=== PATIENT | male | born 1960 | race Caucasian/White ===

== ENCOUNTER 2016-06-24 14:29 | Inpatient (IN) | payer BC ==
[~2016-06-24] VITALS: Ht 172.7 cm; Wt 81.2 kg
[2016-06-24 15:03] LABS: MEAN CORPUSCULAR HEMOGLOBIN 30.8 PG (26.0-34.0); MEAN CORPUSCULAR HGB CONC 33.1 g/dL (31.0-37.0); MEAN CORPUSCULAR VOLUME 93 FL (80-100); MEAN PLATELET VOLUME 10.8 FL (6.0-9.5); PLATELET COUNT 235 10^3uL (150-450); WHITE BLOOD COUNT 19.31 10^3uL (4.0-11.0)
[2016-06-24 15:11] LABS: ALBUMIN 3.6 g/dL (3.4-5.0); ANION GAP 15.2 MEQ/L (3-15); BAND NEUTROPHILS % 4 % (0-6); CALCULATED IONIZED CALCIUM 4.2 mg/dL (3.8-4.6); EOSINOPHILS % 0 % (0-4); LYMPHOCYTES # 0.4 #; MONOCYTES # 1.3 #; MONOCYTES % 7 % (3-11); RBC MORPH NORMAL (NORMAL); SEGMENTED NEUTROPHILS % 87 % (51-67); TOTAL CELLS COUNTED 100; TOTAL PROTEIN 6.8 g/dL (6.4-8.5)
[2016-06-24 16:35] LABS: BILIRUBIN,URINE Negative (Negative); CLARITY,URINE Clear; COLOR,URINE Yellow; GLUCOSE, URINE (UA) Negative (Negative); LEUKOCYTE ESTERASE ,URINE 1+ (Negative)
[2016-06-24 16:51] LABS: URINE CENTRIFUGED VOLUME 12 mL
[2016-06-24] MEDS ORDERED: ACETAMINOPHEN 500 MG TAB (TYLENOL) PO ONE (17:30)
--- NOTE | 2016-06-24 18:50 | NUR ---
Report received, care assumed.
[2016-06-24] MEDS ORDERED: cefTRIAXone SODIUM 1,000 MG in SODIUM CHLORIDE 50 ML IV ONE (19:00)
--- NOTE | 2016-06-24 19:13 | NUR ---
O2 sats 86%, placed O2 on at 2L. Sats now 92%.
--- NOTE | 2016-06-24 21:12 | NUR ---
Report given to DEVIKA Ann. Preparing pt for transfer to ICU.
--- NOTE | 2016-06-24 21:38 | NUR ---
Pt transferred to ICU, Rm 342
--- NOTE | 2016-06-24 21:40 | NUR ---
Blood cultures not obtained prior to admission.
--- NOTE | 2016-06-24 21:47 | NUR ---
patient arrives via cart accompanied by Alexandrea FORTUNE admitted to ICU 342
--- NOTE | 2016-06-24 22:00 | NUR ---
Patient with large light brown loose liquid stool upon entering room, c/o shivering.
[2016-06-24 22:06] VITALS: BP 102/53
--- NOTE | 2016-06-24 22:30 | NUR ---
Third bag of NS from running from ED upon transfer per verbal order changed to 75 ml/hr
--- NOTE | 2016-06-24 22:47 | NUR ---
Tele Dr completed by Hilary Hinton RN and Rhoda FORTUNE, patient with $32 douglas in bag, in closet, offered lock up for money gold wedding band. No other valuables with patient. has iphone at bedside.
--- NOTE | 2016-06-24 23:00 | NUR ---
Nares swabbed for Influenza A&B, sent to lab.
[2016-06-24 23:36] LABS: INFLUENZA VIRUS TYPE A ANTIBOD Negative (NEGATIVE); INFLUENZA VIRUS TYPE B ANTIBOD Negative (NEGATIVE)
[2016-06-24] MEDS ORDERED: ALBUTEROL 0.083% NEB SOLUTION 2.5 MG/3 ML VIAL INH PRN (23:50)
[2016-06-24] MEDS ORDERED: DEXTROSE 50% 25 GM/50 ML SYRINGE IV PRN (23:50)
[2016-06-24] MEDS ORDERED: DEXTROSE ORAL GEL (GLUTOSE 40%) 15 GM TUBE PO PRN (23:50)
[2016-06-24] MEDS ORDERED: PROMETHAZINE HCL INJ 12.5 MG in SODIUM CHLORIDE 25 ML IV PRN (23:50)
[2016-06-24] MEDS ORDERED: GLUCAGON EMERGENCY 1 MG/KIT IM PRN (23:50)
[2016-06-24] MEDS ORDERED: ACETAMINOPHEN 325 MG TAB (TYLENOL) PO PRN (23:50)
[2016-06-25] VITALS (18 sets, daily range): BP systolic 78–129; BP diastolic 41–79
[2016-06-25] MEDS: ONDANSETRON 2 MG/ML (Z0FRAN) 2 ML VIAL IV PRN ×3 (01:00→21:01)
[2016-06-25] MEDS ORDERED: SODIUM CHLORIDE FLUSH 10 ML ONE (01:12)
--- NOTE | 2016-06-25 01:45 | NUR ---
While placing second IV, patient stated he did not want "Ritalin" "please do not pump Ritalin into me", "that is why I dumped it down the drain". Patient was clutching empty bottle of Ritalin upon arriving to the unit. Stated it was in his coat pocket and he dumped it down the drain at home. States it makes him jittery and nervous and its fine when he's up moving but laying in the hospital bed he does not want it. Advised patient I would pass on in report and let hospitalist know.
[2016-06-25] MEDS ORDERED: ACETAMINOPHEN 500 MG TAB (TYLENOL) PO PRN (02:10)
--- NOTE | 2016-06-25 02:18 | NUR ---
Patient sats 87% with rest, O2 @ 2L/nc applied.
--- NOTE | 2016-06-25 02:34 | NUR ---
Dr. Avila consulted for Tylenol order @ 0100 with past medical history of patient. Advised to give 500 mg of Tylenol q 6 hr prn. 1 1/2 tabs given per current order in computer.
[2016-06-25] MEDS ORDERED: HEPARIN 5000 UNIT/0.5 ML SYRINGE SC SCH (06:00)
[2016-06-25 06:14] LABS: MEAN CORPUSCULAR HEMOGLOBIN 30.6 PG (26.0-34.0); MEAN CORPUSCULAR HGB CONC 32.5 g/dL (31.0-37.0); MEAN CORPUSCULAR VOLUME 94 FL (80-100); MEAN PLATELET VOLUME 9.7 FL (6.0-9.5); PLATELET COUNT 172 10^3uL (150-450); WHITE BLOOD COUNT 18.78 10^3uL (4.0-11.0)
[2016-06-25 06:37] LABS: ALBUMIN 2.9 g/dL (3.4-5.0); ANION GAP 13.6 MEQ/L (3-15); CALCULATED IONIZED CALCIUM 3.7 mg/dL (3.8-4.6); TOTAL PROTEIN 5.9 g/dL (6.4-8.5)
--- NOTE | 2016-06-25 06:49 | NUR ---
Orders came up to to acknowledge stat, lab cancellations and reordered. Lab called, notified original orders placed under EMS. Elevated troponin at 0105 Dr. RESENDIZ as soon as seen. Stat order for EKG - nurse put order in and called RT in room now doing EKG
--- NOTE | 2016-06-25 07:10 | NUR ---
Report received from Maira FORTUNE and care assumed. Pt resting in bed with eyes closed, oxygen put on at 1.5 L/NC due to O2 sats in the 80's.
[2016-06-25 07:16] LABS: BAND NEUTROPHILS % 11 % (0-6); EOSINOPHILS % 0 % (0-4); LYMPHOCYTES # 0.6 #; MONOCYTES # 0.7 #; MONOCYTES % 4 % (3-11); RBC MORPH NORMAL (NORMAL); SEGMENTED NEUTROPHILS % 82 % (51-67); TOTAL CELLS COUNTED 100
--- NOTE | 2016-06-25 07:40 | NUR ---
Assessments completed, lungs sounds clr, BS hyperactive, radial pulses palpable and strong, braiding operator equal but weak. Dorsal pulses palpable and strong. Pt denies needs at present. Pt is confused at times. Pt is cooperative. IV sites in RFA and RH are patent without redness or edema.
[2016-06-25] MEDS ORDERED: NS FLUSH 3 ML PRN IV (08:00)
[2016-06-25] MEDS: INSULIN LISPRO 1 UNIT/0.01 ML (HUMALOG) DOSE SC SCH ×6 (08:32→21:00)
[2016-06-25] MEDS ORDERED: cefTRIAXone SODIUM 2 GM in SODIUM CHLORIDE 50 ML IV SCH (09:00)
[2016-06-25] MEDS ORDERED: MAGNESIUM 1 GM/100 ML IVPB 100 ML IV ONE (09:00)
[2016-06-25] MEDS: NS FLUSH 3 ML DAILY IV SCH (09:00)
--- NOTE | 2016-06-25 09:05 | NUR ---
Dr Amaya informed of the run of VF and new orders obtained. Physician into to talk with pt. Pt is confused on some questions and talks randomly. Pt had been up to the toilet and had a large liquid louis stool.
--- NOTE | 2016-06-25 09:15 | NUR ---
1st bag of magnesium IV started and infusing per pump at 100cc/hr. Pt is now resting with eyes closed resp even and unlabored.
[2016-06-25] MEDS ORDERED: ACETAMINOPHEN 325 MG TAB (TYLENOL) PO PRN (09:30)
[2016-06-25] MEDS ORDERED: traZODone 50 MG (DESYREL) TABLET PO PRN (09:50)
[2016-06-25] MEDS: MAGNESIUM 1 GM/100 ML IVPB 100 ML IV SCH ×2 (10:15→10:48)
[2016-06-25] MEDS: ASPIRIN 81 MG CHEW (CHILDREN'S ASA) PO SCH (12:07)
[2016-06-25] MEDS: CEFEPIME 2,000 MG in SODIUM CHLORIDE 100 ML IV SCH ×2 (12:07→23:01)
[2016-06-25] MEDS: DIGOXIN 0.25 MG (LANOXIN) TAB PO SCH (12:07)
--- NOTE | 2016-06-25 12:30 | NUR ---
Pt refused to eat his lunch.
--- NOTE | 2016-06-25 14:05 | NUR ---
Temp is elevated, Tylenol 325 mg tabs x 2 given. Pt resting in bed.
--- NOTE | 2016-06-25 14:20 | NUR ---
Pt having dry heaves, states he is nauseated. Zofran 4 mg IV given as ordered.
[2016-06-25] MEDS ORDERED: NOREPINEPHRINE 4 MG in D5W (IVPB) 250 ML IV PRN (15:15)
--- NOTE | 2016-06-25 15:15 | NUR ---
BP down to 78/54, new order received from Dr. Amaya to start a NS bolus at 500cc/hr for 2 hours. Bolus started. Pt states he is burning up, but temp at this time is 98.2. Pt is diaphoretic.
--- NOTE | 2016-06-25 15:40 | NUR ---
MED REC COMPLETE--current list obtained from external med history application, patient report, and retail pharmacy ([facility]).
--- NOTE | 2016-06-25 16:30 | NUR ---
Called to pt room, requested to have temp taken. Temp per temporal is 97.6. Bolus continues.
--- NOTE | 2016-06-25 17:00 | NUR ---
Pt resting quietly, resp even and unlabored, on RA. BP 122/74, P 96, R 21, and sat 96%.
--- NOTE | 2016-06-25 17:20 | NUR ---
Pt requested tomato soup and milk for supper. Ate his soup and drank two cartons of milk. Dr Amaya present and new orders received to dc the fluids at this time. Pt appears more alert this evening. Monitor remains on and temp remains afebrile at present.
--- NOTE | 2016-06-25 20:30 | NUR ---
Patient lying in bed resting off and on, strong odor in room, patient with dried bm in brief, assisted to toilet, bottom washed with soap and water, refused shower in day and at this time. Encouraged to have shower in the morning, refuses offer of oral care including sponge swabs.
[2016-06-25] MEDS ORDERED: INSULIN GLARGINE 1 UNIT/0.01ML (LANTUS) DOSE SC SCH (21:00)
--- NOTE | 2016-06-25 21:00 | NUR ---
Complaining of nausea with dry heaves, states "I don't feel good". Zofran given per prn order.
[2016-06-25] MEDS: NS FLUSH 10 ML PRN IV (21:01)
--- NOTE | 2016-06-25 21:15 | NUR ---
Patient continues to c/o N, with dry heaves, stated he has not been out of bed. Got up in chair, refuses TV, sits quietly in dark with emesis basin. Very small amount of sputum -50 ml - Returns to bed.
--- NOTE | 2016-06-25 21:45 | NUR ---
Patient clutching "travel bag" from home removed bottle of Nitrostat, Afrin nose spray and Tylenol from room, placed with patient's bag of home medications. Asked is patient had pain, or was in need of pain medication. Denies chest pain, or needs at the moment.
[2016-06-25] MEDS: ATORVASTATIN 40 MG (LIPITOR) TABLET PO SCH (23:04)
--- NOTE | 2016-06-25 23:15 | NUR ---
Continues to c/o nausea/dry heaves, belching, prn Phenergan administered per order.
[2016-06-25] MEDS: INSULIN GLARGINE 1 UNIT/0.01ML (LANTUS) DOSE SC SCH (23:19)
[2016-06-26] VITALS (12 sets, daily range): BP systolic 83–113; BP diastolic 49–73
--- NOTE | 2016-06-26 | NUR ---
Mr. Phillips resting in bed quietly with eyes closed. Opens eyes to verbal, respirations even non labored, required O2 at night during rest, sleep apnea, sats mid to high 80s. Does not use CPAP at home. IV's patent, SL.
--- NOTE | 2016-06-26 03:00 | NUR ---
Patient uses call light to voice need of toileting, incontinent and continent bm, no complaints of N/V at this time. VS as charted, returns to bed, continue to monitor
--- NOTE | 2016-06-26 05:55 | NUR ---
Lab in to draw blood.
[2016-06-26 06:00] LABS: MEAN CORPUSCULAR HEMOGLOBIN 30.8 PG (26.0-34.0); MEAN CORPUSCULAR VOLUME 93 FL (80-100); MEAN PLATELET VOLUME 10.5 FL (6.0-9.5); PLATELET COUNT 150 10^3uL (150-450); WHITE BLOOD COUNT 13.17 10^3uL (4.0-11.0)
[2016-06-26 06:09] LABS: BAND NEUTROPHILS % 4 % (0-6); EOSINOPHILS % 0 % (0-4); LYMPHOCYTES # 0.5 #; MONOCYTES # 0.3 #; MONOCYTES % 2 % (3-11); SEGMENTED NEUTROPHILS % 90 % (51-67); TOTAL CELLS COUNTED 100
[2016-06-26 06:10] LABS: RBC MORPH NORMAL (NORMAL)
[2016-06-26 06:31] LABS: ALBUMIN 2.3 g/dL (3.4-5.0); ANION GAP 13.7 MEQ/L (3-15); MAGNESIUM* 1.9 mg/dL (1.6-2.3); PHOSPHORUS 3.5 mg/dL (2.4-4.9)
--- NOTE | 2016-06-26 07:00 | NUR ---
Report received from Maira FORTUNE and care assumed.
[2016-06-26] MEDS: INSULIN LISPRO 1 UNIT/0.01 ML (HUMALOG) DOSE SC SCH ×7 (07:30→21:00)
--- NOTE | 2016-06-26 07:30 | NUR ---
Assessments completed, pt aroused easily. Denies any needs at present.
[2016-06-26] MEDS ORDERED: ALBUTEROL 0.083% NEB SOLUTION 2.5 MG/3 ML VIAL INH PRN (08:40)
[2016-06-26] MEDS: NS FLUSH 3 ML DAILY IV SCH (09:28)
[2016-06-26] MEDS: DIGOXIN 0.25 MG (LANOXIN) TAB PO SCH (09:28)
[2016-06-26] MEDS: CEFEPIME 2,000 MG in SODIUM CHLORIDE 100 ML IV SCH ×2 (09:28→21:02)
[2016-06-26] MEDS: ASPIRIN 81 MG CHEW (CHILDREN'S ASA) PO SCH (09:28)
[2016-06-26] MEDS: ENOXAPARIN 30 MG/0.3 ML (LOVENOX) SYR SC SCH (09:29)
--- NOTE | 2016-06-26 12:00 | NUR ---
Accu check results 119 mg/dl. Pt is eating very poorly. States he is afraid of eating too much and vomiting.
--- NOTE | 2016-06-26 15:00 | NUR ---
Pt ambulated to shower, had a long shower and washed his hair. Pt states he enjoyed his shower. Pt ambulated back to his room and brushed his teeth standing at the sink. Tolerated it well.
[2016-06-26] MEDS ORDERED: SALINE NASAL SPRAY (OCEAN) 45 ML BTL PRN (16:05)
--- NOTE | 2016-06-26 17:30 | NUR ---
Accu check results 102mg/dl. Pt requested Sprite. Pt eating on his supper.
[2016-06-26] MEDS: ATORVASTATIN 40 MG (LIPITOR) TABLET PO SCH (21:01)
[2016-06-26] MEDS: INSULIN GLARGINE 1 UNIT/0.01ML (LANTUS) DOSE SC SCH (21:02)
--- NOTE | 2016-06-26 21:30 | NUR ---
Resting in bed, does get up to use bathroom, has small amount of incontinent bm, maty briefs provided, more alert, forgetful at times, two bites of potatoes and one bite of meat for dinner. Snack from kitchen for later. HS accu check 105, Ensure provided with few sips. States he does not want to eat due to "feeling bloated" after eating, belching, and "gassy". hyperactive BS, two IV's right upper extremity, patent SL. S as charted, remains on room air for now with respirations even and unlaobored.
[2016-06-26] MEDS: ONDANSETRON 2 MG/ML (Z0FRAN) 2 ML VIAL IV PRN (22:28)
[2016-06-26] MEDS: NS FLUSH 10 ML PRN IV (22:29)
--- NOTE | 2016-06-26 22:34 | NUR ---
Awakens from resting with eyes closed coughing, c/o acid reflux and feeling nauseated. Prn Zofran available per prn order. HOB elevated.
--- NOTE | 2016-06-26 23:00 | NUR ---
Continues with belching, states nausea better, but still a lot of gas, up to toilet small amount of incontinent bm and unmeasured voiding.
[2016-06-27] VITALS (8 sets, daily range): BP systolic 90–117; BP diastolic 54–75
--- NOTE | 2016-06-27 01:52 | NUR ---
Brayan with continent bm and urine, did not observe, patient reports "diarrhea".
--- NOTE | 2016-06-27 06:09 | NUR ---
Ate some SF cookies early am, felt "gassy" and belching, "not as bad as before". Used urinal at bedside without bm, VS as charted, respirations even non labored on room air, O2 @ times of deep sleep O2 sats to mid to high 80s 1.5 L/nc, has been on room air majority of shift. IV's right upper extremity patent, c/o discomfort to right hand and does not like it, no warmth, edema or palpable cord, unwrapped Koban with some relief, flushes easily, would not allow to replace with a new site. Morning accu check 110, no complaints at this time except he keeps getting woke up.
[2016-06-27 06:23] LABS: BASOPHILS % (AUTO) 0 % (0-2); EOSINOPHILS # (AUTO) 0.3 10^3uL; EOSINOPHILS % (AUTO) 2 % (0-4); LYMPHOCYTES # (AUTO) 0.5 X10^3; MEAN CORPUSCULAR HEMOGLOBIN 30.7 PG (26.0-34.0); MEAN CORPUSCULAR HGB CONC 33.3 g/dL (31.0-37.0); MEAN CORPUSCULAR VOLUME 92 FL (80-100); MEAN PLATELET VOLUME 10.5 FL (6.0-9.5); MONOCYTES # (AUTO) 0.9 X10^3; MONOCYTES % (AUTO) 8 % (3-11); NEUTROPHILS # (AUTO) 9.2 X10^3; NEUTROPHILS % (AUTO) 84 % (51-67); PLATELET COUNT 163 10^3uL (150-450); WHITE BLOOD COUNT 10.95 10^3uL (4.0-11.0)
[2016-06-27 06:44] LABS: ALBUMIN 2.7 g/dL (3.4-5.0); ANION GAP 12.9 MEQ/L (3-15); MAGNESIUM* 1.9 mg/dL (1.6-2.3); PHOSPHORUS 3.1 mg/dL (2.4-4.9)
[2016-06-27] MEDS: INSULIN LISPRO 1 UNIT/0.01 ML (HUMALOG) DOSE SC SCH ×7 (07:30→21:25)
[2016-06-27] MEDS: DIGOXIN 0.25 MG (LANOXIN) TAB PO SCH (08:50)
[2016-06-27] MEDS: ENOXAPARIN 30 MG/0.3 ML (LOVENOX) SYR SC SCH (08:50)
[2016-06-27] MEDS: ASPIRIN 81 MG CHEW (CHILDREN'S ASA) PO SCH (08:50)
[2016-06-27] MEDS: CEFEPIME 2,000 MG in SODIUM CHLORIDE 100 ML IV SCH (08:51)
[2016-06-27] MEDS: NS FLUSH 3 ML DAILY IV SCH (08:52)
[2016-06-27] MEDS: ONDANSETRON 2 MG/ML (Z0FRAN) 2 ML VIAL IV PRN ×2 (09:04→15:17)
--- NOTE | 2016-06-27 10:41 | NUR ---
NUTRITION ASSESSMENT Level 1 Patient: Brayan Phillips Age/Sex: 56/M Date Screened: 06-27-16 Weight: 185#/84.1 kg Height: 68 inches Primary Diagnosis: sepsis Diet Order: medium diabetic Relevant labs: potassium 3.4, glucose 112, magnesium 1.9 Food allergies: N Nutrition Assessment Criteria Age over 80: N Body Mass Index (BMI) under 19: N Admission Screening Indicates Risk? 3 points Moderate/High Risk Diagnosis: 3 points TPN or PPN: N NPO or clear liquid diet: N Serum Glucose <70 or >180: N Hgb A1c >6.7: N/A Total: 6 points Risk Screen: __ Patient at low nutritional risk based on available data; reevaluate in 5-7 days __ Patient at moderate nutritional risk based on available data; reevaluate in 3-5 days _X_ Patient at high nutritional risk; complete Nutrition Assessment within 48 hours of admission.
[2016-06-27] MEDS ORDERED: DEXTROSE ORAL GEL (GLUTOSE 40%) 15 GM TUBE PO PRN (11:35)
[2016-06-27] MEDS ORDERED: PROMETHAZINE HCL INJ 12.5 MG in SODIUM CHLORIDE 25 ML IV PRN (11:50)
[2016-06-27] MEDS ORDERED: ALBUTEROL 0.083% NEB SOLUTION 2.5 MG/3 ML VIAL INH PRN ×2 (11:50→12:40)
[2016-06-27] MEDS ORDERED: ACETAMINOPHEN 325 MG TAB (TYLENOL) PO PRN (12:04)
[2016-06-27] MEDS ORDERED: DEXTROSE 50% 25 GM/50 ML SYRINGE IV PRN (12:05)
[2016-06-27] MEDS ORDERED: GLUCAGON EMERGENCY 1 MG/KIT IM PRN (12:06)
[2016-06-27] MEDS ORDERED: SODIUM CHLORIDE FLUSH 3 ML SYR IV PRN (12:08)
[2016-06-27] MEDS ORDERED: traZODone 50 MG (DESYREL) TABLET PO PRN (12:09)
--- NOTE | 2016-06-27 12:51 | NUR ---
The patient is up independently this AM. Respirations are even and unlabored, skin is clean and dry, bowel sounds are active and the patient is up to stool for loose BM. He reports no pain but mild nausea as he belches frequently but does not fear vomitting. Brayan is alert and oriented and able to make needs known. He is cooperative with cares and ambulates to shower this AM. He walks approximately 50 feet without symptoms of nausea or dizziness before transfer to room 307. At approximately 1245 report is given to Gianna FORTUNE and the patient is transferred to room 307.
--- NOTE | 2016-06-27 12:55 | NUR ---
Report received from Sai Hyde RN. Patient transferred to room 307 via wheelchair. Alert and oriented X3. Denies pain, nausea, or distress. Updated on plan of care for shift and oriented to room. Call light in reach.
--- NOTE | 2016-06-27 13:44 | NUR ---
SpO2 96% on Room Air. Few Bilat crackles. Pt states he is "breathing fine" and did not want an aerosol treatment at this time.
[2016-06-27] MEDS: SODIUM CHLORIDE FLUSH 10 ML SYR IV PRN (15:17)
[2016-06-27] MEDS ORDERED: SALINE NASAL SPRAY (OCEAN) 45 ML BTL PRN (16:05)
--- NOTE | 2016-06-27 18:03 | NUR ---
Patient reports no further stools since transfer. PRN Zofran provided for c/o nausea. Refuses supper insulin due to nausea. Agrees to inform nurse if he would like to eat when nausea subsides. Resting in bed with eyes closed. Call light in reach.
--- NOTE | 2016-06-27 19:03 | NUR ---
Pt found on RA, SPO2 98%, HR 98. Pr did not allow me to assess his breath sounds at this time. He seems to be in no respiratory distress.
[2016-06-27] MEDS ORDERED: ATORVASTATIN 40 MG (LIPITOR) TABLET PO SCH (21:00)
[2016-06-27] MEDS ORDERED: INSULIN GLARGINE 1 UNIT/0.01ML (LANTUS) DOSE SC SCH (21:00)
[2016-06-27] MEDS: CIPROFLOXACIN (CIPRO) 500 MG TABLET PO SCH (21:24)
[2016-06-28] MEDS: ONDANSETRON 2 MG/ML (Z0FRAN) 2 ML VIAL IV PRN (00:36)
[2016-06-28] MEDS: SODIUM CHLORIDE FLUSH 10 ML SYR IV PRN (00:36)
--- NOTE | 2016-06-28 00:36 | NUR ---
Patient complaining of persistent nausea. Administered PRN Zofran at this time. See eMAR. Will continue to monitor patient.
[2016-06-28] MEDS: INSULIN LISPRO 1 UNIT/0.01 ML (HUMALOG) DOSE SC SCH ×3 (05:45→11:30)
[2016-06-28 07:40] VITALS: BP 108/78
[2016-06-28] MEDS: CIPROFLOXACIN (CIPRO) 500 MG TABLET PO SCH (08:33)
[2016-06-28] MEDS ORDERED: ENOXAPARIN 30 MG/0.3 ML (LOVENOX) SYR SC SCH (09:00)
[2016-06-28] MEDS ORDERED: ASPIRIN 81 MG CHEW (CHILDREN'S ASA) PO SCH (09:00)
[2016-06-28] MEDS ORDERED: DIGOXIN 0.25 MG (LANOXIN) TAB PO SCH (09:00)
[2016-06-28] MEDS ORDERED: SODIUM CHLORIDE FLUSH 3 ML SYR IV SCH (09:00)
--- NOTE | 2016-06-28 09:34 | NUR ---
NUTRITION ASSESSMENT Level II Patient: Brayan Phillips Age/Sex: 56/M Date Assessed: 06-28-16 ASSESSMENT Pertinent History: Patient admitted with sepsis and screened at high nutritional risk secondary to diagnosis and poor appetite with n/v and frequent diarrhea. PMHx includes CAD, asthma/COPD, CHF, sleep apnea and diabetes. Last documented weight was 187# in September,. Meds/Nutrition: Edwin Richards Weight: 178.6#/81.2 kg Height: 68 inches Body Mass Index (BMI): 27.2 [place] Body Weight : 154#/70 kg % IBW: 115% GASTROINTESTINAL Appetite: improving; was 0-25% but up to 75% this morning Diet Order: medium diabetic, 2 g. sodium Unintentional loss of >10 lbs. in 3 months: N Difficult to chew/swallow: N Diabetes: Yes Relevant Labs: stool sample (-) Calculations for Nutritional Assessment Estimated calorie needs: 22-25 kcals/kg = 1,780-2,025 kcals Estimated protein needs: 1.0-1.1 g/kg = 81-89 g./day DIAGNOSIS 1. Nutrition Diagnosis: acute inadequate intake related to acute illness as evidenced by n/v/d with poor appetite. NUTRITIONAL INTERVENTION Goal: Patient will receive adequate nutrition to meet his needs. Plan: Will provide medium diabetic, 2 g. sodium diet as ordered and monitor intake for adequacy. May benefit from smaller, more frequent meals if he gets full quickly. Noted he still c/o nausea on and off; consider Glucerna with lunch today to see if sipping liquids is better than solid food. MONITORING & EVALUATION _X_ Monitor patients menu selections _X_ Monitor patients food intake per nursing notes __ Monitor NPO/clear liquid days __ Monitor lab values __ Monitor I&O __ Other
[2016-06-28 09:51] LABS: BASOPHILS % (AUTO) 0 % (0-2); EOSINOPHILS # (AUTO) 0.5 10^3uL; EOSINOPHILS % (AUTO) 5 % (0-4); LYMPHOCYTES # (AUTO) 0.5 X10^3; MEAN CORPUSCULAR HEMOGLOBIN 30.7 PG (26.0-34.0); MEAN CORPUSCULAR HGB CONC 33.5 g/dL (31.0-37.0); MEAN CORPUSCULAR VOLUME 92 FL (80-100); MEAN PLATELET VOLUME 10.3 FL (6.0-9.5); MONOCYTES # (AUTO) 0.8 X10^3; MONOCYTES % (AUTO) 7 % (3-11); NEUTROPHILS # (AUTO) 9.1 X10^3; NEUTROPHILS % (AUTO) 83 % (51-67); PLATELET COUNT 175 10^3uL (150-450)
[2016-06-28 10:02] LABS: ANION GAP 12.9 MEQ/L (3-15); MAGNESIUM* 1.8 mg/dL (1.6-2.3)
[2016-06-28] MEDS ORDERED: warFARin 5 MG (COUMADIN) TAB PO ONE (10:50)
[2016-06-28] MEDS ORDERED: warFARin 2 MG (COUMADIN) TAB PO ONE (10:55)
--- NOTE | 2016-06-28 11:04 | NUR ---
Discharge instructions reviewed with patient, demonstrates understanding. SL x2 removed with catheter tip intact. No redness or edema noted at insertion sites. Home medications given back to patient. Pt waiting for ride home; to arrive around 1130. 12mg PO Coumadin given prior to discharge per Kira Huff APRN instruction.
--- NOTE | 2016-06-28 11:43 | NUR ---
Pt dismissed at this time via ambulation to private vehicle accompanied by sister and Norm Tyler CNA. Pt very appreciative of cares, states "I am one happy customer" to this nurse prior to leaving the floor. Skin warm, dry, intact. Resprs nonlabored, even on RA. Belongings, both sets of eye glasses, and home meds sent home with patient.
== END 2016-06-28 11:39 | disposition home or self-care (01) | DRG 872 ==
LOC: EDUNIT# 14:29 → ED 14:30 → ICU 21:16 → MED/SURG 06-27 12:50
PROVIDERS: ADMIT Pediatrics; ATTEND Pediatrics
DX: A41.9 Sepsis, unspecified organism (principal); N39.0 Urinary tract infection, site not specified; N17.9 Acute kidney failure, unspecified; I50.22 Chronic systolic (congestive) heart failure; I47.2 Ventricular tachycardia; R65.20 Severe sepsis without septic shock; I25.5 Ischemic cardiomyopathy; R19.7 Diarrhea, unspecified; E11.22 Type 2 diabetes mellitus with diabetic chronic kidney disease; N18.9 Chronic kidney disease, unspecified; I25.10 Atherosclerotic heart disease of native coronary artery without angina pectoris; Z79.4 Long term (current) use of insulin; Z95.5 Presence of coronary angioplasty implant and graft; Z95.810 Presence of automatic (implantable) cardiac defibrillator
CPT/HCPCS: 36415; 71020; 74022; 80048; 80053; 80069; 80162; 81003; 81015; 82803; 83605; 83735; 83880; 84484; 85025; 85610; 86140; 87040; 87077; 87088; 87186; 87502; 87507; 93005; 96361; 96365; 99283; 99284

== ENCOUNTER → 2016-06-24 | Outpatient (CLI) | payer BC ==
[~2016-06-24] MED LIST: ACETAMINOPHEN 325 MG TAB (TYLENOL) PO PRN; ALBUTEROL 0.083% NEB SOLUTION 2.5 MG/3 ML VIAL INH PRN; ATORVASTATIN 80 MG PO SCH; CEFTRIAXONE SODIUM IV SCH; DEXTROSE 50% 25 GM/50 ML SYRINGE IV PRN; DEXTROSE ORAL GEL (GLUTOSE 40%) 15 GM TUBE PO PRN; DIGOXIN 0.25 MG (LANOXIN) TAB PO SCH; ENOXAPARIN 40 MG/0.4 ML (LOVENOX) SYR SC SCH; FAMOTIDINE 20 MG (PEPCID) TABLET PO SCH; GLUCAGON EMERGENCY 1 MG/KIT IM PRN; INSULIN GLARGINE HUM REC ANLOG 60 UNIT SQ SCH; METHYLPHENIDATE HCL 10 MG PO SCH; NON-FORMULARY MEDICATION 1 EA EA (Aspirin (Aspir 81) 81 MG) PO SCH; NON-FORMULARY MEDICATION 1 EA EA (Insulin Lispro (Humalog) 10 UNIT) SQ SCH; ONDANSETRON 2 MG/ML (Z0FRAN) 2 ML VIAL IV PRN; ONDANSETRON 4 MG (ZOFRAN) ORAL DISSOLVE TAB PO PRN; PROMETHAZINE HCL INJ 12.5 MG in SODIUM CHLORIDE 25 ML IV PRN; SODIUM CHLORIDE IV SCH; [UNRECOGNIZED DRUG - OTHER] SQ SCH; warFARin 5 MG (COUMADIN) TAB PO SCH
== END ==
LOC: EMS 14:33
PROVIDERS: ATTEND Emergency Medicine
DX: R11.2 Nausea with vomiting, unspecified (principal); R50.9 Fever, unspecified